=== PATIENT | female | born 1990 ===

== ENCOUNTER 2016-06-30 06:56 | Day surgery (SDC) | payer MEDICARE, OTHER ==
[2016-06-19 14:26] VITALS: BMI 28.0
[2016-06-30] MEDS ORDERED: Oxymetazoline 0.05% Nasal Spray (30 ml) NS ONE (07:31)
[2016-06-30] MEDS ORDERED: Lidocaine 1% w Epi 1:100,000 Inj ONE (07:31)
[2016-06-30] MEDS ORDERED: ceFAZolin IV 1 gm in Dextrose 50 ML IVPB ONE (07:31)
[2016-06-30] MEDS ORDERED: Acetaminophen-Codeine 300/30 mg Tab PO PRN (07:58)
[2016-06-30] MEDS ORDERED: Dextrose 5%/0.45% NS 1,000 ML IV SCH (08:00)
[2016-06-30] MEDS ORDERED: Propofol 10 mg/ml Inj (20 ML) ONE (08:15)
[2016-06-30] MEDS ORDERED: Rocuronium 10 mg/ml (5 ml) ONE (08:17)
[2016-06-30] MEDS ORDERED: Lactated Ringer's 1,000 ML IV ONE (08:25)
[2016-06-30] MEDS ORDERED: White Petrolatum/Mineral Oil Ophth Oint(3.5 gm) ONE (08:29)
[2016-06-30] MEDS ORDERED: Atropine Sulfate 0.4 mg/ml (0.8mg/2ml) Syringe IV ONE (09:19)
[2016-06-30] MEDS ORDERED: Neostigmine Methylsulfate 3mg/3ml Syringe IV ONE (09:19)
[2016-06-30] MEDS ORDERED: HYDROmorphone 0.5 mg/0.5 ml ISec IVP PRN (09:43)
[2016-06-30] MEDS ORDERED: Lactated Ringer's 1,000 ML IV SCH (09:45)
[2016-06-30] MEDS ORDERED: Lactated Ringer's 500 ML IV ONE (12:00)
[2016-06-30 12:07] VITALS: RESP 17; O2SAT 98
--- NOTE | 2016-06-30 13:49 | OP ---
PROCEDURE DATE: 06/30/2016 PREOPERATIVE DIAGNOSIS: Sinusitis. POST OPERATIVE DIAGNOSIS: Sinusitis. PROCEDURE: Endoscopic right maxillary antrostomy, endoscopic bilateral ethmoidectomy. SIGNIFICANT FINDINGS: Sinusitis. DESCRIPTION OF PROCEDURE: The patient was brought in room and placed in supine position. Anesthesia was initiated through an ET tube and navigation was set up and used throughout the case in order to make sure that the skull base and orbit were not entered. A 0-degree scope was inserted into the left nasal cavity. Previous ethmoidectomy had been done; however, some of the ethmoid sinuses along the skull base are closed. The skull base was identified and biting forceps were used to track the skull base all the way anteriorly opening up the cells that were closed. Bleeding was controlled with Afrin-soaked pledgets. The maxillary antrum was noted to be patent. Attention was turned to the right. The middle turbinate was injected with lidocaine with epinephrine and medialized. Uncinate process was medialized using a Griffin elevator and removed using forceps. Ethmoid bulla was entered inferomedially using a debrider going posteriorly to the basal lamella, then anteriorly and superiorly until the ethmoid bulla was removed. The basal lamella was entered. Posterior ethmoid cells were entered and opened. Skull base was identified and followed anteriorly all the way to the area of the anterior ethmoid air cells. Next, a curved suction hooked up to navigation was used to locate the maxillary antrum which was noted to be stenosed and opened using forceps. Bleeding was controlled using Afrin soaked pledgets. A stent was placed on the right. The patient was taken off anesthesia and taken to recovery room in stable manner. Israel Zapata MD cc: [id number] TT: 06/30/2016 13:49:14 jn MTDD
[2016-06-30 13:59] VITALS: TEMP 97.2
[2016-06-30 14:01] VITALS: BP 125/78; PULSE 72
== END 2016-06-30 13:50 | disposition home or self-care (01) ==
LOC: C.SDS 06:56
PROVIDERS: ATTEND Otolaryngology
DX: J32.0 Chronic maxillary sinusitis (principal); J32.2 Chronic ethmoidal sinusitis; J34.89 Other specified disorders of nose and nasal sinuses
CPT/HCPCS: 31255; 31256; 88304; 88311; J0690; J2405; J2704; J2710; J2765; J3010; J7120

== ENCOUNTER 2016-09-08 13:16 | Emergency (ER) | payer MEDICARE, OTHER ==
[2016-09-08 13:16] VITALS: BMI 28.0
[2016-09-08] MEDS ORDERED: Sodium Chloride 0.9% 1,000 ML IV ONE (13:59)
--- NOTE | 2016-09-08 14:12 | C.PDOC ---
History Of Present Illness 26 y/o female presents to the ED s/p seizure white at doctor's office. Pt has approximately 3 seizures per month, on keppra 250mg BID. Denies tongue bite, fever, chills, neck pain, back pain or any other complaints. Sister at bedside assisting with history. Time Seen by Provider: 09/08/16 13:54 Chief Complaint (Nursing): Seizure History Per: Patient History/Exam Limitations: no limitations Number Of Seizures: One Quality Of Seizure: Generalized Post-ictal Period: Yes Severity: Moderate Recent travel outside of the [place]: No Additional History Per: Family Past Medical History Reviewed: Historical Data, Nursing Documentation, Vital Signs Vital Signs: Last Vital Signs Temp 98.2 F 09/08/16 13:41 Pulse 78 09/08/16 13:41 Resp 20 09/08/16 13:41 BP 125/81 09/08/16 13:41 Pulse Ox 99 09/08/16 15:22 - Medical History PMH: Asthma (never hospitalized), Seizures (cause unknown last seizure mar 2016) Surgical History: Endoscopy Family History: States: Unknown Family Hx - Social History Hx Tobacco Use: No Hx Alcohol Use: No Hx Substance Use: No - Immunization History Hx Tetanus Toxoid Vaccination: No Hx Influenza Vaccination: No Hx Pneumococcal Vaccination: No Review Of Systems Except As Marked, All Systems Reviewed And Found Negative. Constitutional: Negative for: Fever Cardiovascular: Negative for: Chest Pain Respiratory: Negative for: Shortness of Breath Gastrointestinal: Negative for: Vomiting Musculoskeletal: Negative for: Neck Pain, Back Pain Neurological: Positive for: Seizures. Negative for: Weakness, Numbness Physical Exam - Physical Exam Appears: Non-toxic, No Acute Distress Skin: Warm, Dry, No Rash Head: Atraumatic, Normacephalic Eye(s): bilateral: PERRL, EOMI Nose: Normal Tongue: Normal Appearing, No Bite Neck: Normal, Normal ROM, Supple Chest: Symmetrical Cardiovascular: Rhythm Regular, No Murmur Respiratory: Normal Breath Sounds, No Rales, No Rhonchi, No Wheezing Gastrointestinal/Abdominal: Normal Exam, Soft, No Tenderness Extremity: Normal ROM Extremity: Bilateral: Atraumatic Neurological/Psych: Oriented x3, Normal Speech, Other (post-ictal) ED Course And Treatment - Laboratory Results Result Diagrams: 09/08/16 14:17 09/08/16 14:23 Lab Interpretation: Normal (tox neg, ua neg.) Urine POC: Negative ECG: Interpreted By Me ECG Rhythm: Sinus Rhythm ECG Interpretation: Normal Rate From EC O2 Sat by Pulse Oximetry: 99 (room air) Pulse Ox Interpretation: Normal Progress Note: keppra 250 po given Reevaluation Time: 15:29 Reassessment Condition: Improved (post-ictal relieved, feels better) Medical Decision Making Medical Decision Making: recurrent seizures, already following Neuro for seizure meds and adjustment. Disposition Doctor Will See Patient In The: Office Counseled Patient/Family Regarding: Studies Performed, Diagnosis - Disposition Disposition: HOME/ ROUTINE Disposition Time: 15:30 Condition: GOOD - Clinical Impression Clinical Impression: Seizure - Scribe Statement The provider has reviewed the documentation as recorded by the Onelia Lowe Provider Attestation: All medical record entries made by the [place]ibadriana were at my direction and personally dictated by me. I have reviewed the chart and agree that the record accurately reflects my personal performance of the history, physical exam, medical decision making, and the department course for this patient. I have also personally directed, reviewed, and agree with the discharge instructions and disposition.
[2016-09-08 14:22] LABS: BASO % 0.7 % (0.0-2.0); HEMATOCRIT 42.9 % (34.0-47.0); LYMPH # 1.8 K/uL (1.0-4.3); LYMPH % 39.8 % (20.0-40.0); MEAN CELL VOLUME 88.3 fL (81.0-99.0); MEAN CORPUSCULAR HEMOGLOBIN 29.6 pg (27.0-31.0); MEAN CORPUSCULAR HGB CONC 33.5 g/dL (33.0-37.0); MEAN PLATELET VOLUME 9.1 fL (7.2-11.7); MONO # 0.5 K/uL (0.0-0.8); MONO % 11.8 % (0.0-10.0); NRBC % 0.1 % (0.0-2.0); RED CELL DISTRIBUTION WIDTH 12.6 % (11.5-14.5); WHITE BLOOD COUNT 4.4 K/uL (4.8-10.8)
[2016-09-08 14:38] LABS: VALPROIC ACID < 10.0 ug/mL (50.0-100.0)
[2016-09-08 14:39] LABS: CHLORIDE 101 mmol/L (98-107); SODIUM 138 mmol/L (132-148)
[2016-09-08 14:40] LABS: POTASSIUM 3.6 mmol/L (3.6-5.2)
[2016-09-08 14:42] LABS: ALB/GLOB RATIO 1.5 (1.0-2.1); ALKALINE PHOSPHATASE 99 U/L (38-126); ALT/SGPT 25 U/L (9-52); AST/SGOT 26 U/L (14-36); BILIRUBIN,TOTAL 0.2 mg/dL (0.2-1.3); BLOOD UREA NITROGEN 9 mg/dL (7-17); CALCIUM 8.9 mg/dl (8.6-10.4); CARBON DIOXIDE 25 mmol/L (22-30); GFR AFRICAN-AMERICAN > 60; GLUCOSE,RANDOM 83 mg/dL (65-105); TOTAL PROTEIN 8.2 g/dL (6.3-8.3)
[2016-09-08 14:43] LABS: ALCOHOL SERUM < 10 mg/dl (0-10)
[2016-09-08 14:45] LABS: URINE BILIRUBIN NEGATIVE (NEGATIVE); URINE BLOOD 2+ (NEGATIVE); URINE COLOR Straw (YELLOW); URINE GLUCOSE (UA) NORMAL (Normal); URINE KETONE NEGATIVE (NEGATIVE); URINE LEUKOCYTE ESTERASE NEG Leu/uL (Negative); URINE PROTEIN NEGATIVE (NEGATIVE); URINE UROBILINOGEN NORMAL mg/dL (0.2-1.0); WBC URINE < 1 /hpf (0-5)
[2016-09-08 15:55] VITALS: BP 111/74; PULSE 66; RESP 18; TEMP 97.9; O2SAT 100
[2016-09-12 08:36] LABS: CARBAMAZEPINE < 2.0 ug/mL (4.0-12.0)
--- NOTE | 2016-09-15 13:39 | CARD ---
APPROVED REPORT EKG Measurement Heart [id number] <Conclusion> Normal sinus rhythm Possible Left atrial enlargement Borderline ECG
== END 2016-09-08 16:31 | disposition home or self-care (01) ==
LOC: C.ER 13:16
DX: G40.909 Epilepsy, unspecified, not intractable, without status epilepticus (principal)
CPT/HCPCS: 80053; 80156; 80164; 80185; 80299; 81001; 84703; 85025; 96360; 99285; G0480; J7040

== ENCOUNTER 2016-11-23 07:38 | Emergency (ER) | payer MEDICARE, OTHER ==
[2016-11-23 07:38] VITALS: BMI 28.0
[2016-11-23] MEDS ORDERED: Sodium Chloride 0.9% 1,000 ML IV ONE (07:54)
--- NOTE | 2016-11-23 08:02 | C.PDOC ---
History Of Present Illness Pt is a 26 yr old female. The patient's boyfriend called 911 because the patient "was not acting right". Per EMS, this morning the patient was acting bizarre. When EMS arrived, the patient was crying. EMS asked her for her name , and patient said "I don't know my name". Asked her for her and said: "I don't know my birthday". Pt then put into ambulance and in ambulance pt was mumbling and not answering questions. Solid Waste Collector said it was almost as if the patient was like the patient was using a "forced slurred speech". Boyfriend did not come to the ED. Here in ED, the patient is unable to answer questions and keeps rubbing her left shoulder. Pt is tearful here in the ED. EMS states bottles of alcohol were at the bedside but that the bottles were full. PMD: Unknown Time Seen by Provider: 11/23/16 07:54 Chief Complaint (Nursing): Weakness/Neurological Deficit History Per: Patient, EMS History/Exam Limitations: clinical condition Past Medical History Reviewed: Historical Data, Nursing Documentation, Vital Signs Vital Signs: Last Vital Signs Temp 98.1 F 11/23/16 12:32 Pulse 62 11/23/16 12:32 Resp 16 11/23/16 12:32 BP 104/71 11/23/16 12:32 Pulse Ox 99 11/23/16 13:36 - Medical History PMH: Asthma (never hospitalized), Seizures (cause unknown last seizure mar 2016) Denies: Kidney Stones, Chronic Kidney Disease Surgical History: Endoscopy Family History: States: Unknown Family Hx - Social History Hx Tobacco Use: No Hx Alcohol Use: No Hx Substance Use: No - Immunization History Hx Tetanus Toxoid Vaccination: No Hx Influenza Vaccination: No Hx Pneumococcal Vaccination: No Review Of Systems Review Of Systems: ROS cannot be obtained secondary to pt's inabilty to answer questions. Physical Exam - Physical Exam Appears: Other (Tearful, mumbling words) Skin: Warm, Dry, No Rash Head: Atraumatic Eye(s): bilateral: Normal Inspection, EOMI Ear(s): Bilateral: Normal Nose: Normal Oral Mucosa: Moist Tongue: Normal Appearing Lips: Normal Appearing Teeth: Normal Dentition Gingiva: Normal Appearing Throat: Normal Neck: Normal Lymphatic: Deferred Chest: Symmetrical Cardiovascular: Rhythm Regular Respiratory: Normal Breath Sounds, No Rales, No Rhonchi, No Wheezing Rectal: Deferred Back: Normal Inspection Extremity: Normal ROM, Other (mild tenderness to left shoulder) Pulses: Left Radial: Normal, Right Radial: Normal Neurological/Psych: Normal Motor, Normal Sensation, Other (mumbling words) ED Course And Treatment - Laboratory Results Result Diagrams: 11/23/16 08:18 11/23/16 08:18 O2 Sat by Pulse Oximetry: 99 Medical Decision Making Medical Decision Making: Initial Impression: Altered mental status Differential diagnosis includes but is not limited to: post-ictal, anxiety, hypoglycemia, psych Initial Plan: Will check labs, monitor pt, CT brain, Ativan to treat possible anxiety Progress Notes: 9:17 AM - Pt's sister (Evelin) has arrived to the ED. She states that the patient had a seizure yesterday and was sent to [facility] ED and the ER discharged her home yesterday. The sister did call the boyfriend this morning and the boyfriend told the sister that she had another seizure this morning. Pt is now talking and states she feels better. She does not recall having a seizure this AM. I have also put out a page to the patient's neurologist (Dr. Oliver [phone]). 11:10 AM--I spoke to Dr. Oliver's BINDER LOCKSTITCH (Lauren Corral). She says these are non- epileptical seizures. EEG recently negative. States if pt feels better, can later be d/c'ed home and follow up in Dr. Oliver's [place] office on 11/30/2016 ED OBSERVATION Discharge: Yes Date of observation admission: 11/23/16 Time of observation admission: 09:56 - Observation admission statement Patient is being placed in observation because:: Patient with prolonged post-ictal phase - Goals of Observation Goals of observation are:: Improvement of symptoms - Progress Note Progress Note: 11/23/16 10:51 CT brain negative. Case d/w Dr. Estrada (neuro construction plant operator). He states pt with recent unremarkable EEG. He recommends that if pt feeling better, then d/c home and pt can follow up with her neurologist. 11/23/16 13:36 Pt feels better. Will d/c home. Disposition Counseled Patient/Family Regarding: Studies Performed, Diagnosis, Need For Followup - Disposition Disposition Time: 09:17 Condition: IMPROVED - POA Present On Arrival: None - Clinical Impression Clinical Impression: Seizure disorder
[2016-11-23 08:25] LABS: BASO % 0.7 % (0.0-2.0); EOS % 0.8 % (0.0-4.0); HEMOGLOBIN 14.6 g/dL (11.0-16.0); LYMPH # 1.8 K/uL (1.0-4.3); LYMPH % 39.5 % (20.0-40.0); MEAN CELL VOLUME 85.7 fL (81.0-99.0); MEAN CORPUSCULAR HEMOGLOBIN 28.9 pg (27.0-31.0); MEAN CORPUSCULAR HGB CONC 33.7 g/dL (33.0-37.0); MONO # 0.5 K/uL (0.0-0.8); MONO % 12.4 % (0.0-10.0); NEUT # 2.1 K/uL (1.8-7.0); NEUT % 46.6 % (50.0-75.0); NRBC % 0.1 % (0.0-2.0); RBC 5.04 Mil/uL (3.80-5.20); RED CELL DISTRIBUTION WIDTH 12.6 % (11.5-14.5); WHITE BLOOD COUNT 4.4 K/uL (4.8-10.8)
[2016-11-23 08:44] LABS: ALB/GLOB RATIO 1.1 (1.0-2.1); ALT/SGPT 28 U/L (9-52); AST/SGOT 24 U/L (14-36); BLOOD UREA NITROGEN 13 mg/dL (7-17); GFR AFRICAN-AMERICAN > 60; GFR NON-AFRICAN AMERICAN > 60
[2016-11-23 08:45] LABS: SALICYLATE < 1.0 mg/dL 1
[2016-11-23 08:50] LABS: ACETAMINOPHEN < 10.0 ug/mL (10.0-30.0)
[2016-11-23 09:22] LABS: HCG,QUALITATIVE URINE NEGATIVE (NEGATIVE)
[2016-11-23 09:26] LABS: SQUAMOUS EPITHIAL 5 /hpf (0-5); URINE BILIRUBIN NEGATIVE (NEGATIVE); URINE BLOOD NEGATIVE (NEGATIVE); URINE CLARITY Clear (Clear); URINE COLOR Yellow (YELLOW); URINE GLUCOSE (UA) NORMAL (Normal); URINE LEUKOCYTE ESTERASE TRACE Leu/uL (Negative); URINE NITRATE NEGATIVE (NEGATIVE); URINE PROTEIN NEGATIVE (NEGATIVE); URINE UROBILINOGEN NORMAL mg/dL (0.2-1.0)
[2016-11-23 09:30] LABS: BARBITURATES, UR NEGATIVE (NEGATIVE)
[2016-11-23 09:31] LABS: BENZODIAZEPINES, UR NEGATIVE (NEGATIVE)
[2016-11-23 09:34] LABS: OPIATES, UR NEGATIVE (NEGATIVE)
[2016-11-23 09:35] LABS: PHENCYCLIDINE, UR NEGATIVE (NEGATIVE)
--- NOTE | 2016-11-23 10:44 | CT ---
PROCEDURE: CT HEAD WITHOUT CONTRAST. HISTORY: Seizure. COMPARISON: 10/01/2013 TECHNIQUE: Axial computed tomography images were obtained through the head/brain without intravenous contrast. Radiation dose: Total exam DLP = 687 mGy-cm. This CT exam was performed using one or more of the following dose reduction techniques: Automated exposure control, adjustment of the mA and/or kV according to patient size, and/or use of iterative reconstruction technique. FINDINGS: HEMORRHAGE: No intracranial hemorrhage. BRAIN: No mass effect or edema. No atrophy or chronic microvascular ischemic changes. VENTRICLES: Unremarkable. No hydrocephalus. CALVARIUM: Unremarkable. PARANASAL SINUSES: Postoperative changes at the left ethmoid air cells. MASTOID AIR CELLS: Unremarkable as visualized. No inflammatory changes. OTHER FINDINGS: None. IMPRESSION: No acute intracranial abnormality. If symptoms persists, consider MRI.
[2016-11-23 12:34] VITALS: RESP 16; TEMP 98.1
[2016-11-23 13:36] VITALS: O2SAT 99
[2016-11-23 14:40] VITALS: BP 114/71; PULSE 71
== END 2016-11-23 14:40 | disposition home or self-care (01) ==
LOC: C.ER 07:38
DX: G40.909 Epilepsy, unspecified, not intractable, without status epilepticus (principal)
CPT/HCPCS: 70450; 80053; 81001; 82550; 82948; 84702; 84703; 85025; 96374; 99285; G0480; J2060; J7040